=== PATIENT | female | born 1990 | race American Indian/Alaskan Native ===

== ENCOUNTER 2021-04-15 15:01 | Emergency (ER) | payer MEDICAID ==
[2021-04-15 15:23] VITALS: BP 131/84
[2021-04-15] MEDS ORDERED: TETANUS,DIPH,PERTUSS(ACELL) VACCINE 0.5 ML SYRINGE IM ONE (15:27)
--- NOTE | 2021-04-15 15:28 | Emergency Department Report ---
ED General Adult HPI - General Chief complaint: Laceration/Recheck/Suture Stated complaint: RIGHT FOOT PAIN Time Seen by Provider: 04/15/21 15:27 Source: patient Mode of arrival: Ambulatory Limitations: No Limitations - History of Present Illness Initial comments: 30-year-old female patient presents with complaints of right foot pain after an injury 2 days ago. Patient states she sustained a cut to her foot via a broken glass. She is unsure of her last tetanus vaccine. She denies any redness, swelling, drainage, or difficulty moving her foot. No past medical history per patient -: Sudden Severity scale (0 -10): 5 - Related Data Previous Rx's Medication Instructions Recorded Last Taken Type Mupirocin [Bactroban 2% OINT] 1 applic TP TID 10 Days #1 tube 04/15/21 Unknown Rx cephALEXin [Keflex] 500 mg PO TID 7 Days #21 cap 04/15/21 Unknown Rx Allergies Allergy/AdvReac Type Severity Reaction Status Date / Time No Known Allergies Allergy Verified 04/15/21 15:19 ED Review of Systems ROS: Stated complaint: RIGHT FOOT PAIN Other details as noted in HPI Constitutional: denies: chills, fever Musculoskeletal: denies: joint swelling, arthralgia Skin: denies: rash, lesions, change in color Neurological: denies: numbness, paresthesias ED Past Medical Hx - Past Medical History Previous Medical History?: No - Surgical History Past Surgical History?: No - Medications Home Medications: Home Medications Medication Instructions Recorded Confirmed Last Taken Type Mupirocin [Bactroban 2% OINT] 1 applic TP TID 10 Days #1 tube 04/15/21 Unknown Rx cephALEXin [Keflex] 500 mg PO TID 7 Days #21 cap 04/15/21 Unknown Rx ED Physical Exam - General Limitations: No Limitations General appearance: alert, in no apparent distress - Head Head exam: Present: atraumatic, normocephalic - Eye Eye exam: Present: normal appearance - Neurological Exam Neurological exam: Present: alert, oriented X3, normal gait - Psychiatric Psychiatric exam: Present: normal affect, normal mood - Skin Skin exam: Present: warm, dry, intact, normal color, other (Healing laceration noted to plantar surface of right heel without surrounding erythema, swelling, drainage, or tenderness to palpation; no obvious foreign bodies noted). Absent: rash ED Course Vital Signs 04/15/21 15:19 Temperature 97.9 F Pulse Rate 75 Respiratory 16 Rate Blood Pressure 131/84 [Left] O2 Sat by Pulse 97 Oximetry ED Medical Decision Making - Medical Decision Making 30-year-old female patient presents with complaints of right foot pain after an injury 2 days ago. Patient states she sustained a cut to her foot via a broken glass. She is unsure of her last tetanus vaccine. She denies any redness, swelling, drainage, or difficulty moving her foot. No past medical history per patient X-ray ordered to rule out glass foreign body, however patient refuses x-ray. Discussed importance of rule out of glass foreign body, however patient continues to decline x-ray. Infectious risks explained in detail. Patient placed on Keflex and mupirocin. Tetanus vaccine updated. Discussed wound care and signs and symptoms that should prompt immediate return to the ED with patient, she verbalizes understanding. Referral given for primary care. Patient to follow-up in 3-5 Critical care attestation.: If time is entered above; I have spent that time in minutes in the direct care of this critically ill patient, excluding procedure time. ED Disposition Clinical Impression: Laceration of foot, right Disposition: HOME / SELF CARE / HOMELESS Is pt being admited?: No Condition: Stable Instructions: Nonsutured Laceration Care Prescriptions: Mupirocin [Bactroban 2% OINT] 1 applic TP TID 10 Days #1 tube cephALEXin [Keflex] 500 mg PO TID 7 Days #21 cap Referrals: [facility] [Provider Group] - 3-5 Days Forms: Work/School Release Form(ED)
== END 2021-04-15 16:15 | disposition home or self-care (01) ==
LOC: ED 15:01
DX: S94.91XA Injury of unspecified nerve at ankle and foot level, right leg, initial encounter (principal); X58.XXXA Exposure to other specified factors, initial encounter; Y93.9 Activity, unspecified; Y92.9 Unspecified place or not applicable; Y99.9 Unspecified external cause status
CPT/HCPCS: 90471; 90715; 99281